=== PATIENT | female | born 1965 | race Caucasian/White ===

== ENCOUNTER 2019-09-04 19:31 | Inpatient (IN) | payer OTHER ==
--- NOTE | 2019-09-04 20:19 | BHS.RME ---
Substance Use & Tx History - Last Treatment Where was last treatment: Detox CIWA Nausea/Vomitin-Mild Nausea/No Vomiting Muscle Tremors: 4-Moderate,w/Arms Extend Anxiety: 4-Mod. Anxious/Guarded Agitation: 2 Paroxysmal Sweats: 2 Orientation: 2-Disoriented Date<2 days Tacttile Disturbances: 0-None Auditory Disturbances: 0-None Visual Disturbances: 0-None Headache: 3-Moderate CIWA-Ar Total Score: 18
[2019-09-04 21:19] VITALS: BMI 27.6
--- NOTE | 2019-09-04 22:33 | HP ---
CIWA Score Nausea/Vomitin-Mild Nausea/No Vomiting Muscle Tremors: 4-Moderate,w/Arms Extend Anxiety: 4-Mod. Anxious/Guarded Agitation: 4-Moderately Restless Paroxysmal Sweats: 2 Orientation: 0-Oriented Tacttile Disturbances: 0-None Auditory Disturbances: 0-None Visual Disturbances: 0-None Headache: 3-Moderate (Frontal throbbing headache. "4-5") CIWA-Ar Total Score: 18 - Admission Criteria OASAS Guidelines: Admission for Medically Managed Detox: Requires at least one of the followin. CIWA greater than 12 2. Seizures within the past 24 hours 3. Delirium tremens within the past 24 hours 4. Hallucinations within the past 24 hours 5. Acute intervention needed for co occurring medical disorder 6. Acute intervention needed for co occurring psychiatric disorder 7. Severe withdrawal that cannot be handled at a lower level of care (continued vomiting, continued diarrhea, abnormal vital signs) requiring intravenous medication and/or fluids 8. Admitting History and Physical - Smoking History Smoking history: Current every day smoker Have you smoked in the past 12 months: Yes Aproximately how many cigarettes per day: 10 Admission ROS [facility] Chief Complaint: Here because I relapsed 2 weeks ago and I can't stop drinking" Allergies/Adverse Reactions: Allergies Allergy/AdvReac Type Severity Reaction Status Date / Time Penicillins Allergy Intermediate Swelling Verified 09/04/19 21:00 Sulfa (Sulfonamide Allergy Intermediate Swelling Verified 09/04/19 21:00 Antibiotics) History of Present Illness: 54 yo presents w/ alcohol withdrawal symptoms seeking detox. Longest sobriety 10 years 8510-2792. States relapses 2-3 weeks ago. Alcohol use began at age 12. Currently drinks 2 large bottles wine and 6 - 12 oz beers/day. Last drink about 7 pm today. Heroin use began at age 23. Denies heroin relapse. Currently on [facility] MMTP. States current dose is 40 mg and last medicated today. Nicotine use began at age 12. Currently smokes 1/2-1 PPD. Oxycodone prescribed for entire spine. PMHx: COPD; Hx Lung Cancer - (S/P surgery and chemotherapy.) - States next chemo dose is in September; Chronic back Pain. Hx Heart attack 2 months ago w/ Irregular Heart beat - last took heart medications this a.m. - Metoprolol. Staes put on Prednisone yesterday x 5 days. Took one dose today. PATIENT INFORMED THAT OXYCODONE AND OTHER OPIATES ARE NOT PRESCRIBED AT THIS FACILITY FOR PAIN. PATIENT STATES UNDERSTANDS. STATES HAS OCCASIONALLY SKIPPED A DAY OF MEDICATION. PATIENT INFORMED WILL BE RECEIVING IBUPROFEN AND/OR TYLENOL FOR PAIN, MHHx: Depression. Anxiety. Insomnia. Denies thoughts of harming self or others. States takes Zoloft. No recent MH Provider. SHx: Domicile. Unemployed (SSI). Denies legal issues. Patient Name: Zari Lomeli Date: 1965 Address: [address] [place] [address] Sex: Female Rx Written Rx Dispensed Drug Quantity Days Supply Prescriber Name Payment Method Dispenser oxycodone hcl 20 mg tablet 85 29 Jay Bueno MD [facility] oxycodone hcl 20 mg tablet 90 30 Jay Bueno [facility] lorazepam 0.5 mg tablet 30 15 Jay Bueno MD [facility] oxycodone hcl 20 mg tablet 90 30 Jay Bueno MD [facility] oxycodone hcl 20 mg tablet 90 30 Jay Bueno MD [facility] oxycodone hcl 20 mg tablet 90 30 Jay Bueno MD [facility] oxycodone hcl 10 mg tablet 10 2 [facility] oxycodone hcl 20 mg tablet 90 30 Jay Bueno MD [facility] oxycodone hcl 20 mg tablet 90 30 Jay Bueno MD [facility] oxycodone hcl 20 mg tablet 90 30 Jay Bueno MD Insurance [facility] oxycodone hcl 20 mg tablet 90 30 Jay Bueno MD Insurance [facility] Date: 1965 Address: [address] [place] [address] Sex: Female Rx Written Rx Dispensed Drug Quantity Days Supply Prescriber Name Payment Method Dispenser oxycodone hcl 20 mg tablet 90 30 Jay Bueno MD Insurance [facility] oxycodone hcl 20 mg tablet 90 30 Jay Bueno MD Insurance [facility] oxycodone hcl 20 mg tablet 90 30 Jay Bueno MD Insurance [facility] Exam Limitations: No Limitations - Ebola screening Have you traveled outside of the country in the last 21 days: No Have you had contact with anyone from an Ebola affected area: No Have you been sick,other than usual withdrawal symptoms: No Do you have a fever: No - Review of Systems Constitutional: Changes in sleep (Difficulty staying asleep), Weight Stable EENT: reports: Blurred Vision, Dental Problems (Poor dentition. Chews and swalows ok) Respiratory: reports: SOB with Exertion, Productive cough Cardiac: reports: Irregular Heart Rate (On meds - but can remember what) GI: reports: Diarrhea (watery, dark brown x 2 - last 12 noon), Nausea, Indigestion (Heart burn - takes Rolaids/Tums), Abdominal cramping : reports: No Symptoms Reported Musculoskeletal: reports: Back Pain (Chronic full spinal throbbing/pin and needles pain. "6-7". Increases w/ sitting in wrong. positons. Sometines oxycodone or motrin makes it better.), Joint Pain (Recent knee dull, achy pain. Current (R) leg pain = "7"), Other (Uses walker because of back pain) Integumentary: reports: Other (Picked spots) Neuro: reports: Headache (Frontal throbbing headache. "4-5"), Tremors Endocrine: reports: Increased Thirst Hematology: reports: No Symptoms Reported Psychiatric: reports: Judgement Intact, Orientated x3, Agitated, Anxious Patient History - Patient Medical History Hx Asthma: Yes Hx Chronic Obstructive Pulmonary Disease (COPD): Yes Hx Cardiac Disorders: No Hx Hypertension: Yes (ON MEDS) Hx Seizures: No Hx Diabetes: No Hx Gastrointestinal Disorders: No Hx Genitourinary Disorders: No Hx Sexually Transmitted Disorders: No Hx Renal Disease (ESRD): No Hx Depression: Yes Hx Suicide Attempt: No Hx Schizophrenia: No - Patient Surgical History Past Surgical History: Yes Hx Neurologic Surgery: No Hx Cataract Extraction: No Hx Cardiac Surgery: No Hx Lung Surgery: Yes (Lung CA MAR 2019) Hx Breast Surgery: No Hx Breast Biopsy: No Hx Abdominal Surgery: No Hx Appendectomy: No Hx Cholecystectomy: No Hx Genitourinary Surgery: No Hx Section: Yes (X1 30YRS AGO) Hx Orthopedic Surgery: No Anesthesia Reaction: No - PPD History Previous Implant?: Yes Documented Results: Negative w/o proof Implanted On Prior [facility] Admission?: No PPD to be Administered?: Yes - Reproductive History Patient is a Female of Child Bearing Age (11 -55 yrs old): No - Smoking Cessation Smoking history: Current every day smoker Have you smoked in the past 12 months: Yes Aproximately how many cigarettes per day: 10 Hx Chewing Tobacco Use: No Initiated information on smoking cessation: Yes 'Breaking Loose' booklet given: 09/04/19 - Substance & Tx. History Hx Alcohol Use: Yes Hx Substance Use: Yes Substance Use Type: Alcohol, Heroin Hx Substance Use Treatment: Yes (detox, rehab, Currently on MMTP) - Substances abused Alcohol Substance route: Oral Frequency: Daily Amount used: vodka- 1 gallon/ beers- 6 can 24oz Age of first use: 12 Date of last use: 09/04/19 Admission Physical Exam BHS - Vital Signs Vital Signs: Vital Signs - 24 hr 09/04/19 20:58 Temperature 98.8 F Pulse Rate 86 Respiratory 20 Rate Blood Pressure 146/73 - Physical General Appearance: Yes: Nourished, Mild Distress, Tremorous, Sweating ( Increased facial moisture), Anxious (Increased facial moisture) HEENTM: Yes: EOMI, Hearing grossly Normal, DARYL, Pharynx Normal, Nasal Congestion Respiratory: Yes: Lungs Clear, Normal Breath Sounds, Other (Cough productive of thick yellowish phlegm) Breast: Yes: Breast Exam Deferred Cardiology: Yes: Regular Rhythm, Regular Rate, S1, S2 Abdominal: Yes: Non Tender, Soft, Increased Bowel Sounds Genitourinary: Yes: Within Normal Limits Back: Yes: Normal Inspection Musculoskeletal: Yes: full range of Motion, Gait Steady (w/o walker.), Muscle Pain ((R) chest area. + tenderness w/ palpation. No increased erythema or warmth.) Extremities: Yes: Normal Capillary Refill, Tremors Neurological: Yes: teaching artist II-XII NML intact, Fully Oriented, Alert, Motor Strength 5/5, Normal Mood/Affect (Increased anxiety) Integumentary: Yes: Normal Color, Warm, Moist (Increased facial moisture), Other (red picking peguero on arms) Lymphatic: Yes: Within Normal Limits - Diagnostic (1) Alcohol dependence with withdrawal, uncomplicated Current Visit: Yes Status: Acute (2) Methadone maintenance therapy patient Current Visit: Yes Status: Chronic (3) COPD (chronic obstructive pulmonary disease) Current Visit: Yes Status: Chronic Qualifiers: COPD type: unspecified COPD Qualified Code(s): J44.9 - Chronic obstructive pulmonary disease, unspecified (4) HTN (hypertension) Current Visit: Yes Status: Chronic Qualifiers: Hypertension type: unspecified Qualified Code(s): I10 - Essential (primary ) hypertension (5) History of lung cancer Current Visit: Yes Status: Chronic (6) Chronic back pain Current Visit: Yes Status: Chronic Qualifiers: Back pain location: back pain in unspecified location Back pain laterality : midline Qualified Code(s): M54.9 - Dorsalgia, unspecified; G89.29 - Other chronic pain (7) Nicotine dependence, unspecified, uncomplicated Current Visit: Yes Status: Chronic Qualifiers: Nicotine product type: cigarettes Qualified Code(s): F17.210 - Nicotine dependence, cigarettes, uncomplicated (8) History of irregular heartbeat Current Visit: Yes Status: Chronic (9) Abnormal finding on EKG Current Visit: Yes Status: Acute Cleared for Admission [facility] - Detox or Rehab [facility] Level of Care: Medically Managed Detox Regimen/Protocol: Librium Claeared for Rehab Admission: No Inpatient Rehab Admission - Rehab Decision to Admit Inpatient rehab admission?: No
[2019-09-04] MEDS ORDERED: MENTHOL/PHENOL 1 EACH UD MM PRN (23:08)
[2019-09-04] MEDS ORDERED: METHOCARBAMOL 500 MG TABLET PO PRN (23:08)
[2019-09-04] MEDS ORDERED: MAGNESIUM CITRATE 300 ML BOTTLE PO PRN (23:08)
[2019-09-04] MEDS ORDERED: ACETAMINOPHEN 325 MG TABLET (FP) PO PRN ×2 (23:08)
[2019-09-04] MEDS ORDERED: MAG HYDROX/AL HYDROX/SIMETH 30 ML UNIT-DOSE CUP PO PRN (23:08)
[2019-09-04] MEDS ORDERED: NICOTINE POLACRILEX 2 MG GUM BUC PRN (23:08)
[2019-09-04] MEDS ORDERED: MAGNESIUM HYDROX 2400MG/30ML ORAL SUSPENSION 30 ML CUP PO PRN (23:08)
[2019-09-04] MEDS ORDERED: SODIUM CHLORIDE NASAL SPRAY 44 ML BOTTLE NS PRN (23:15)
[2019-09-04] MEDS ORDERED: ALBUTEROL SO4 0.083% IH SOL 2.5 MG/3 ML VIAL.NEB. NEB PRN (23:17)
[2019-09-04] MEDS ORDERED: P-EPHED 60MG/TRIPROLIDI 2.5MG TABLET PO PRN (23:45)
[2019-09-04] MEDS ORDERED: chlordiazePOXIDE HCL 25 MG CAPSULE PO ONE (23:59)
[2019-09-05] MEDS: IBUPROFEN 400 MG TABLET (FP) PO PRN ×2 (00:59→10:19)
[2019-09-05] MEDS: guaiFENesin 200 MG/10 ML 10 ML UNIT-DOSE CUPS PO SCH ×4 (01:13→17:36)
[2019-09-05] MEDS ORDERED: chlordiazePOXIDE HCL 10 MG CAPSULE PO PRN (05:00)
[2019-09-05] MEDS: chlordiazePOXIDE HCL 10 MG CAPSULE PO SCH ×3 (06:25→22:26)
[2019-09-05] MEDS: METOPROLOL TARTRATE 25 MG TABLET (FP) PO SCH ×3 (08:14→22:25)
[2019-09-05 09:44] LABS: HEMATOCRIT 35.8 % (32.4-45.2); HEMOGLOBIN 11.6 GM/dL (10.7-15.3); MCH 30.9 pg (25.7-33.7); MCHC 32.4 g/dl (32.0-36.0); MEAN CELL VOLUME 95.2 fl (80-96); PLATELET COUNT 235 K/MM3 (134-434); RBC 3.76 M/mm3 (3.60-5.2); WHITE BLOOD COUNT 18.3 K/mm3 (4.0-10.0)
[2019-09-05 10:15] LABS: ALBUMIN 3.4 g/dl (3.4-5.0); BILIRUBIN,TOTAL 1.4 mg/dL (0.2-1); BLOOD UREA NITROGEN 12.3 mg/dL (7-18); CALCIUM 9.2 mg/dL (8.5-10.1); CREATININE 0.6 mg/dL (0.55-1.3); POTASSIUM 4.4 mmol/L (3.5-5.1); TOT PROT 6.9 g/dl (6.4-8.2)
[2019-09-05] MEDS: NICOTINE 14 MG/24 HOURS TOPICAL PATCH TD SCH (10:17)
[2019-09-05] MEDS: predniSONE 20 MG TABLET (UD) PO SCH (10:20)
[2019-09-05] MEDS: PANTOPRAZOLE 20 MG TABLET PO SCH ×2 (10:21→22:25)
[2019-09-05] MEDS: PRENATAL VITAMINS W/ FOLIC ACID TABLET (FP) PO SCH (10:21)
--- NOTE | 2019-09-05 10:41 | CONSULT ---
[facility] Psychiatric Consult - Data Date of interview: 09/05/19 Admission source: [facility] Identifying data: First visit to [facility] and admission to [address] [place] [address] for this 54 y/o female from [place] descent, self-referred for detoxification treatment. MANDIE issues : alcohol, opioid, nicotine. Patient is single, mother of one, domiciled, unemployed, disabled and supported on SSI benefits. Substance Abuse History: Discussed with patient. Details in current [facility] report as follows : Smoking history: Current every day smoker. Have you smoked in the past 12 months: Yes. Aproximately how many cigarettes per day: 10. Hx Chewing Tobacco Use: No. Initiated information on smoking cessation: Yes. 'Breaking Loose' booklet given: 09/04/19. - Substance & Tx. History. Hx Alcohol Use: Yes. Hx Substance Use: Yes. Substance Use Type: Alcohol, Heroin. Hx Substance Use Treatment: Yes (detox, rehab, Currently on MMTP). - Substances abused. Alcohol. Substance route: Oral. Frequency: Daily. Amount used: vodka- 1 gallon/ beers- 6 can 24oz. Age of first use: 12. Date of last use: Medical History: Medical profile is remarkable for lung cancer (on chemotherapy) , COPD, hypertension and recent myocardial infarction. Patient ambulates with a rolling walker. Psychiatric History: Patient endorses a history of multiple psychiatric hospitalizations ([facility] + [facility] + [facility] institutions in [facility]). Diagnosed with Bipolar Disorder. Ms Lomeli reports psychiatric care with sertraline + trazodone. Has no affiliation with psychiatric providers. Patient indicates that she relies on her primary care providers for medications refills (discharged from the [facility] OPD program for chronic non-adherence). Currently on methadomne maintenance (40 mg/day). Patient reports a distant history of suicide attempt via overdose with pills (20 years ago). Physical/Sexual Abuse/Trauma History: Stressors : serious medical illnesses and disabilities, addictions and lack of a support network. Additional Comment: Toxicology not available for review. Mental Status Exam - Mental Status Exam Alert and Oriented to: Time, Place, Person Cognitive Function: Good Patient Appearance: Disheveled Mood: Sad, Withdrawn Affect: Mood Congruent, Constricted Patient Behavior: Fatigued, Appropriate, Cooperative Speech Pattern: Clear, Appropriate Voice Loudness: Normal Thought Process: Intact, Goal Oriented Thought Disorder: Not Present Hallucinations: Denies Suicidal Ideation: Denies Homicidal Ideation: Denies Insight/Judgement: Poor Sleep: Poorly, Difficulty falling asleep Appetite: Poor, Weight loss Gait/Station: Other (moves around with rolling walker) Psychiatric Findings - Problem List ([place] 1, 2,3) (1) Alcohol dependence with withdrawal, uncomplicated Current Visit: Yes Status: Acute (2) Opioid dependence on agonist therapy Current Visit: Yes Status: Chronic (3) Nicotine dependence, unspecified, uncomplicated Current Visit: Yes Status: Chronic Qualifiers: Nicotine product type: cigarettes Qualified Code(s): F17.210 - Nicotine dependence, cigarettes, uncomplicated (4) History of depression Current Visit: Yes Status: Chronic (5) Insomnia Current Visit: Yes Status: Chronic - Initial Treatment Plan Initial Treatment Plan: Psychoeducation. Sleep hygiene. Detoxification. Insomnia is addressed with melatonin. AA/NA metings. Support and motivational counseling. Observation.
--- NOTE | 2019-09-05 11:03 | PN ---
S CIWA - CIWA Score Nausea/Vomitin-No Nausea/No Vomiting Muscle Tremors: None Anxiety: 3 Agitation: 0-Normal Activity Paroxysmal Sweats: 3 Orientation: 0-Oriented Tacttile Disturbances: 0-None Auditory Disturbances: 0-None Visual Disturbances: 0-None Headache: 2-Mild CIWA-Ar Total Score: 8 BHS Progress Note (SOAP) Subjective: c/o headache, anxiety, and sweats. Objective: 09/05/19 10:59 Vital Signs 09/05/19 09/05/19 09/05/19 03:30 06:59 09:02 Temperature 97.3 F L 97.1 F L Pulse Rate 70 68 Respiratory 18 18 18 Rate Blood Pressure 141/67 97/54 L Laboratory Last Values WBC 18.3 K/mm3 (4.0-10.0) H 09/05/19 07:20 RBC 3.76 M/mm3 (3.60-5.2) 09/05/19 07:20 Hgb 11.6 GM/dL (10.7-15.3) 09/05/19 07:20 Hct 35.8 % (32.4-45.2) 09/05/19 07:20 MCV 95.2 fl (80-96) 09/05/19 07:20 MCH 30.9 pg (25.7-33.7) 09/05/19 07:20 MCHC 32.4 g/dl (32.0-36.0) 09/05/19 07:20 RDW 22.0 % (11.6-15.6) H 09/05/19 07:20 Plt Count 235 K/MM3 (134-434) 09/05/19 07:20 MPV 9.0 fl (7.5-11.1) 09/05/19 07:20 Sodium 141 mmol/L (136-145) 09/05/19 07:20 Potassium 4.4 mmol/L (3.5-5.1) 09/05/19 07:20 Chloride 108 mmol/L (98-107) H 09/05/19 07:20 Carbon Dioxide 26 mmol/L (21-32) 09/05/19 07:20 Anion Gap 8 MMOL/L (8-16) 09/05/19 07:20 BUN 12.3 mg/dL (7-18) 09/05/19 07:20 Creatinine 0.6 mg/dL (0.55-1.3) 09/05/19 07:20 Est GFR (CKD-EPI)AfAm 118.09 09/05/19 07:20 Est GFR (CKD-EPI)NonAf 101.89 09/05/19 07:20 Random Glucose 63 mg/dL (74-106) L 09/05/19 07:20 Calcium 9.2 mg/dL (8.5-10.1) 09/05/19 07:20 Total Bilirubin 1.4 mg/dL (0.2-1) H 09/05/19 07:20 AST 13 U/L (15-37) L 09/05/19 07:20 ALT 14 U/L (13-61) 09/05/19 07:20 Alkaline Phosphatase 100 U/L (45-117) 09/05/19 07:20 Total Protein 6.9 g/dl (6.4-8.2) 09/05/19 07:20 Albumin 3.4 g/dl (3.4-5.0) 09/05/19 07:20 RPR Titer Nonreactive (NONREACTIVE) 09/05/19 07:20 Labs noted with elevated WBC. Assessment: 09/05/19 11:00 AOX3, in no respiratory distress. Full ROM, ambulating in the unit with a walker. Withdrawal symptoms. Leukocytosis 09/05/19 11:00 Plan: continue detox. Increase fluids. Repeat cbc with diff in AM.
[2019-09-05] MEDS ORDERED: METHADONE HCL 10 MG TABLET PO SCH (12:00)
[2019-09-05] MEDS ORDERED: METHADONE HCL 10 MG TABLET PO ONE (20:00)
--- NOTE | 2019-09-05 21:05 | PN ---
[facility] Progress Note Note: Patient states feeling some opioid withdrawal symptoms. States was given methadone 20 mg this am, but usual dose is 40 mg. Assess: Pupils at 5 mm and mild tremors felt. Plan: Based on EBP of addiction medicine will give additional 10 mg methadone today ( total 30 mg today). Give Methadone 30 mg PO in a.m. Nurses to call patient's methadone program on 09/06 and verify LDM and dose.
[2019-09-05] MEDS: ATORVASTATIN CA 40 MG TABLET (FP) PO SCH (22:25)
[2019-09-05] MEDS: THIAMINE HCL 100 MG TABLET (FP) PO SCH (22:25)
[2019-09-06] MEDS ORDERED: chlordiazePOXIDE HCL 10 MG CAPSULE PO PRN (05:00)
[2019-09-06] MEDS ORDERED: METHADONE HCL 10 MG TABLET PO ONE ×2 (06:00→10:00)
[2019-09-06] MEDS: chlordiazePOXIDE 5 MG CAPSULE PO SCH ×3 (06:37→22:21)
[2019-09-06] MEDS: guaiFENesin 200 MG/10 ML 10 ML UNIT-DOSE CUPS PO SCH ×5 (06:37→23:25)
[2019-09-06 09:22] LABS: BASO % 0.8 % (0-2.0); EOS % 0.5 % (0-4.5); HEMATOCRIT 33.7 % (32.4-45.2); HEMOGLOBIN 10.9 GM/dL (10.7-15.3); LYMPH % 22.5 % (8-40); MCH 30.8 pg (25.7-33.7); MCHC 32.3 g/dl (32.0-36.0); MEAN CELL VOLUME 95.4 fl (80-96); MEAN PLT VOLUME 9.3 fl (7.5-11.1); NEUT % 71.2 % (42.8-82.8); PLATELET COUNT 218 K/MM3 (134-434); RBC 3.53 M/mm3 (3.60-5.2); RDW 20.8 % (11.6-15.6); WHITE BLOOD COUNT 13.7 K/mm3 (4.0-10.0)
--- NOTE | 2019-09-06 10:03 | PN ---
[facility] CIWA - CIWA Score Nausea/Vomitin-Mild Nausea/No Vomiting Muscle Tremors: 4-Moderate,w/Arms Extend Anxiety: 4-Mod. Anxious/Guarded Agitation: 0-Normal Activity Paroxysmal Sweats: 2 Orientation: 0-Oriented Tacttile Disturbances: 0-None Auditory Disturbances: 0-None Visual Disturbances: 0-None Headache: 0-None Present CIWA-Ar Total Score: 11 S Progress Note (SOAP) Subjective: 54 years old female admitted on 09/04/19 for alcohol withdrawal sx management treating with librium detox regiment ambulating on hallway with walker using walker x 2 years and in the methadone program x 7 years alert oriented x 3 no acute distress Ms Kalacar is prescribed with 20mg opiate based pain release medication three time daily last filled 08/29/19 Objective: 09/06/19 10:09 Vital Signs Temperature 97.1 F L 09/06/19 05:55 Pulse Rate 53 L 09/06/19 05:55 Respiratory Rate 16 09/06/19 05:55 Blood Pressure 106/62 09/06/19 05:55 O2 Sat by Pulse Oximetry (%) Laboratory Last Values WBC 13.7 K/mm3 (4.0-10.0) H 09/06/19 07:30 RBC 3.53 M/mm3 (3.60-5.2) L 09/06/19 07:30 Hgb 10.9 GM/dL (10.7-15.3) 09/06/19 07:30 Hct 33.7 % (32.4-45.2) 09/06/19 07:30 MCV 95.4 fl (80-96) 09/06/19 07:30 MCH 30.8 pg (25.7-33.7) 09/06/19 07:30 MCHC 32.3 g/dl (32.0-36.0) 09/06/19 07:30 RDW 20.8 % (11.6-15.6) H 09/06/19 07:30 Plt Count 218 K/MM3 (134-434) 09/06/19 07:30 MPV 9.3 fl (7.5-11.1) 09/06/19 07:30 Absolute Neuts (auto) 9.8 K/mm3 (1.5-8.0) H 09/06/19 07:30 Neutrophils % 71.2 % (42.8-82.8) 09/06/19 07:30 Lymphocytes % 22.5 % (8-40) 09/06/19 07:30 Monocytes % 5.0 % (3.8-10.2) 09/06/19 07:30 Eosinophils % 0.5 % (0-4.5) 09/06/19 07:30 Basophils % 0.8 % (0-2.0) 09/06/19 07:30 Nucleated RBC % 0 % (0-0) 09/06/19 07:30 Sodium 141 mmol/L (136-145) 09/05/19 07:20 Potassium 4.4 mmol/L (3.5-5.1) 09/05/19 07:20 Chloride 108 mmol/L (98-107) H 09/05/19 07:20 Carbon Dioxide 26 mmol/L (21-32) 09/05/19 07:20 Anion Gap 8 MMOL/L (8-16) 09/05/19 07:20 BUN 12.3 mg/dL (7-18) 09/05/19 07:20 Creatinine 0.6 mg/dL (0.55-1.3) 09/05/19 07:20 Est GFR (CKD-EPI)AfAm 118.09 09/05/19 07:20 Est GFR (CKD-EPI)NonAf 101.89 09/05/19 07:20 Random Glucose 63 mg/dL (74-106) L 09/05/19 07:20 Calcium 9.2 mg/dL (8.5-10.1) 09/05/19 07:20 Total Bilirubin 1.4 mg/dL (0.2-1) H 09/05/19 07:20 AST 13 U/L (15-37) L 09/05/19 07:20 ALT 14 U/L (13-61) 09/05/19 07:20 Alkaline Phosphatase 100 U/L (45-117) 09/05/19 07:20 Total Protein 6.9 g/dl (6.4-8.2) 09/05/19 07:20 Albumin 3.4 g/dl (3.4-5.0) 09/05/19 07:20 RPR Titer Nonreactive (NONREACTIVE) 09/05/19 07:20 HIV 1&2 Antibody Screen Negative 09/05/19 07:20 HIV P24 Antigen Negative 09/05/19 07:20 lab noted Assessment: 09/06/19 10:09 alcohol withdrawal Plan: librium regiment
[2019-09-06] MEDS: predniSONE 20 MG TABLET (UD) PO SCH (10:11)
[2019-09-06] MEDS: METOPROLOL TARTRATE 25 MG TABLET (FP) PO SCH ×2 (10:12→22:21)
[2019-09-06] MEDS: PRENATAL VITAMINS W/ FOLIC ACID TABLET (FP) PO SCH (10:12)
[2019-09-06] MEDS: PANTOPRAZOLE 20 MG TABLET PO SCH ×2 (10:12→22:21)
[2019-09-06] MEDS: NICOTINE 14 MG/24 HOURS TOPICAL PATCH TD SCH (10:12)
[2019-09-06 13:36] LABS: ANISOCYTOSIS 1+; MACROCYTOSIS 0; PLATELET ESTIMATE NORMAL; TARGET CELLS 1+
[2019-09-06] MEDS: ATORVASTATIN CA 40 MG TABLET (FP) PO SCH (22:21)
[2019-09-06] MEDS: THIAMINE HCL 100 MG TABLET (FP) PO SCH (22:21)
[2019-09-06] MEDS: MELATONIN 5 MG TABLETS PO PRN (22:22)
[2019-09-07] MEDS: chlordiazePOXIDE HCL 10 MG CAPSULE PO SCH ×3 (05:49→22:02)
[2019-09-07] MEDS: guaiFENesin 200 MG/10 ML 10 ML UNIT-DOSE CUPS PO SCH ×4 (05:49→23:24)
[2019-09-07] MEDS ORDERED: METHOCARBAMOL 500 MG TABLET PO ONE (08:43)
--- NOTE | 2019-09-07 09:31 | EKG ---
Test Reason : Blood Pressure : / mmHG Vent. Rate : 057 BPM Atrial Rate : 057 BPM P-R Int : 102 ms QRS Dur : 080 ms QT Int : 424 ms P-R-T Axes : 046 064 078 degrees QTc Int : 412 ms SINUS BRADYCARDIA WITH SHORT MD OTHERWISE NORMAL ECG WHEN COMPARED WITH ECG OF 04-SEP-2019 23:19, MD INTERVAL HAS DECREASED QUESTIONABLE CHANGE IN QRS DURATION Confirmed by Alix Walker ([id number]) on 09/07/2019 9:30:39 AM Referred By: Serafin Vines Confirmed By:Alix Walker
--- NOTE | 2019-09-07 09:32 | EKG ---
Test Reason : Blood Pressure : / mmHG Vent. Rate : 078 BPM Atrial Rate : 078 BPM P-R Int : 154 ms QRS Dur : 110 ms QT Int : 396 ms P-R-T Axes : 000 065 113 degrees QTc Int : 451 ms NORMAL SINUS RHYTHM Nonspecific ST changes ABNORMAL ECG NO PREVIOUS ECGS AVAILABLE Confirmed by Alix Walker ([id number]) on 09/07/2019 9:31:25 AM Referred By: Serafin Vines Confirmed By:Alix Walker
--- NOTE | 2019-09-07 09:56 | PN ---
S CIWA - CIWA Score Nausea/Vomitin-No Nausea/No Vomiting Muscle Tremors: 2 Anxiety: 3 Agitation: 1-Slight > Activity Paroxysmal Sweats: 2 Orientation: 0-Oriented Tacttile Disturbances: 0-None Auditory Disturbances: 0-None Visual Disturbances: 0-None Headache: 0-None Present CIWA-Ar Total Score: 8 BHS Progress Note (SOAP) Subjective: 54 years old female admitted on 09/04/19 for alcohol withdrawal sx management treating with librium detox regiment feeling better today less tremor mild anxiety ambulating with walker slow steady encourage the patient to attend behavior and psychosocial therapies groups and meetings Objective: 09/07/19 09:57 Vital Signs Temperature 97.1 F L 09/07/19 08:31 Pulse Rate 57 L 09/07/19 08:31 Respiratory Rate 18 09/07/19 08:31 Blood Pressure 131/59 L 09/07/19 08:31 O2 Sat by Pulse Oximetry (%) Laboratory Last Values WBC 13.7 K/mm3 (4.0-10.0) H 09/06/19 07:30 RBC 3.53 M/mm3 (3.60-5.2) L 09/06/19 07:30 Hgb 10.9 GM/dL (10.7-15.3) 09/06/19 07:30 Hct 33.7 % (32.4-45.2) 09/06/19 07:30 MCV 95.4 fl (80-96) 09/06/19 07:30 MCH 30.8 pg (25.7-33.7) 09/06/19 07:30 MCHC 32.3 g/dl (32.0-36.0) 09/06/19 07:30 RDW 20.8 % (11.6-15.6) H 09/06/19 07:30 Plt Count 218 K/MM3 (134-434) 09/06/19 07:30 MPV 9.3 fl (7.5-11.1) 09/06/19 07:30 Absolute Neuts (auto) 9.8 K/mm3 (1.5-8.0) H 09/06/19 07:30 Neutrophils % 71.2 % (42.8-82.8) 09/06/19 07:30 Neutrophils % (Manual) 53.1 % (42.8-82.8) 09/06/19 07:30 Band Neutrophils % 6.1 % 09/06/19 07:30 Lymphocytes % 22.5 % (8-40) 09/06/19 07:30 Lymphocytes % (Manual) 22.5 % (8-40) 09/06/19 07:30 Monocytes % 5.0 % (3.8-10.2) 09/06/19 07:30 Monocytes % (Manual) 5 % (3.8-10.2) 09/06/19 07:30 Eosinophils % 0.5 % (0-4.5) 09/06/19 07:30 Eosinophils % (Manual) 2.0 % (0-4.5) 09/06/19 07:30 Basophils % 0.8 % (0-2.0) 09/06/19 07:30 Basophils % (Manual) 0.0 % (0-2.0) 09/06/19 07:30 Myelocytes % (Man) 0 % (0-2) 09/06/19 07:30 Promyelocytes % (Man) 0 % (0-2) 09/06/19 07:30 Blast Cells % (Manual) 0 % (0-0) 09/06/19 07:30 Nucleated RBC % 0 % (0-0) 09/06/19 07:30 Metamyelocytes 0 % (0-2) 09/06/19 07:30 Hypochromia 0 09/06/19 07:30 Platelet Estimate Normal 09/06/19 07:30 Platelet Comment Present 09/06/19 07:30 Polychromasia 1+ 09/06/19 07:30 Poikilocytosis 1+ 09/06/19 07:30 Anisocytosis 1+ 09/06/19 07:30 Microcytosis 1+ 09/06/19 07:30 Macrocytosis 0 09/06/19 07:30 Spherocytes 2+ 09/06/19 07:30 Target Cells 1+ 09/06/19 07:30 Chitra Cells 1+ 09/06/19 07:30 Sodium 141 mmol/L (136-145) 09/05/19 07:20 Potassium 4.4 mmol/L (3.5-5.1) 09/05/19 07:20 Chloride 108 mmol/L (98-107) H 09/05/19 07:20 Carbon Dioxide 26 mmol/L (21-32) 09/05/19 07:20 Anion Gap 8 MMOL/L (8-16) 09/05/19 07:20 BUN 12.3 mg/dL (7-18) 09/05/19 07:20 Creatinine 0.6 mg/dL (0.55-1.3) 09/05/19 07:20 Est GFR (CKD-EPI)AfAm 118.09 09/05/19 07:20 Est GFR (CKD-EPI)NonAf 101.89 09/05/19 07:20 Random Glucose 63 mg/dL (74-106) L 09/05/19 07:20 Calcium 9.2 mg/dL (8.5-10.1) 09/05/19 07:20 Total Bilirubin 1.4 mg/dL (0.2-1) H 09/05/19 07:20 AST 13 U/L (15-37) L 09/05/19 07:20 ALT 14 U/L (13-61) 09/05/19 07:20 Alkaline Phosphatase 100 U/L (45-117) 09/05/19 07:20 Total Protein 6.9 g/dl (6.4-8.2) 09/05/19 07:20 Albumin 3.4 g/dl (3.4-5.0) 09/05/19 07:20 RPR Titer Nonreactive (NONREACTIVE) 09/05/19 07:20 HIV 1&2 Antibody Screen Negative 09/05/19 07:20 HIV P24 Antigen Negative 09/05/19 07:20 09/07/19 09:57 lab noted wbc elevation patient is asymptomatic no coughing denies urination discomfort Assessment: 09/07/19 09:59 alcohol withdrawal Plan: librium regiment
[2019-09-07] MEDS: METOPROLOL TARTRATE 25 MG TABLET (FP) PO SCH ×2 (10:07→22:02)
[2019-09-07] MEDS: NICOTINE 14 MG/24 HOURS TOPICAL PATCH TD SCH (10:07)
[2019-09-07] MEDS: predniSONE 20 MG TABLET (UD) PO SCH (10:07)
[2019-09-07] MEDS: PRENATAL VITAMINS W/ FOLIC ACID TABLET (FP) PO SCH (10:07)
[2019-09-07] MEDS: PANTOPRAZOLE 20 MG TABLET PO SCH ×2 (10:10→22:02)
--- NOTE | 2019-09-07 10:54 | PN ---
S Progress Note Note: received EKG department requests EKG order for Ms Lomeli on 09/07/19 935 am
--- NOTE | 2019-09-07 11:25 | EKG ---
Test Reason : Blood Pressure : / mmHG Vent. Rate : 051 BPM Atrial Rate : 051 BPM P-R Int : 092 ms QRS Dur : 100 ms QT Int : 426 ms P-R-T Axes : 061 054 086 degrees QTc Int : 392 ms SINUS BRADYCARDIA WITH SHORT [place] OTHERWISE NORMAL ECG WHEN COMPARED WITH ECG OF 06-SEP-2019 07:25, NO SIGNIFICANT CHANGE WAS FOUND Confirmed by Alix Walker ([id number]) on 09/07/2019 11:25:32 AM Referred By: Serafin Vines Confirmed By:Alix Walker
[2019-09-07] MEDS: IBUPROFEN 400 MG TABLET (FP) PO PRN (14:00)
[2019-09-07 17:16] LABS: EPI CELLS 1.3 /HPF (0-5/HPF); HYALINE CASTS 0 /lpf (0-8); PH,URINE 5.5 (5.0-8.0); URINE APPEARANCE CLEAR; URINE BILIRUBIN NEGATIVE (NEGATIVE); URINE COLOR YELLOW; URINE GLUCOSE (UA) NEGATIVE (NEGATIVE); URINE KETONE NEGATIVE (NEGATIVE); URINE LEUK ESTERASE TRACE (NEGATIVE); URINE NITRITE NEGATIVE (NEGATIVE); URINE PROTEIN NEGATIVE (NEGATIVE); URINE RBC 4 /hpf (0-4); URINE UROBILINOGEN 0.2 mg/dL (0.2-1.0); URINE WBC 3 /hpf (0-5)
[2019-09-07] MEDS ORDERED: SUVOREXANT 5 MG TABLET PO SCH (22:00)
[2019-09-07] MEDS: THIAMINE HCL 100 MG TABLET (FP) PO SCH (22:02)
[2019-09-07] MEDS: ATORVASTATIN CA 40 MG TABLET (FP) PO SCH (22:02)
[2019-09-07] MEDS: MELATONIN 5 MG TABLETS PO PRN (22:03)
[2019-09-08] MEDS ORDERED: chlordiazePOXIDE HCL 10 MG CAPSULE PO ONE (05:00)
[2019-09-08] MEDS: guaiFENesin 200 MG/10 ML 10 ML UNIT-DOSE CUPS PO SCH (05:56)
[2019-09-08] MEDS: BISMUTH SUBSALICYLATE 524 MG/30 ML UD PO PRN ×3 (05:56→08:55)
[2019-09-08 05:57] VITALS: BP 150/69; PULSE 51; TEMP 97.3
--- NOTE | 2019-09-08 15:05 | DS ---
[facility] Detox Discharge Summary Admission Date: 09/04/19 Discharge Date: 09/08/19 - History Present History: Alcohol Dependence Additional Comments: 54 years old female admitted on 09/05/19 for alcohol withdrawal sx management treated with librium detox regiment Ms Lomeli has completed librium regiment and tolerated well seen by psychiatrist no medical intervention alert oriented x 3 ambulating with walker slow steady respiratory clear lungs bilaterally on auscultation abdomen soft no rebound tenderness skin warm and dry Pertinent Past History: time for discharge 38 minutes - Physical Exam Results Vital Signs: Vital Signs Temperature 97.3 F L 09/08/19 05:56 Pulse Rate 51 L 09/08/19 05:56 Respiratory Rate 18 09/08/19 05:56 Blood Pressure 150/69 09/08/19 05:56 O2 Sat by Pulse Oximetry (%) Pertinent Admission Physical Exam Findings: alcohol withdrawal Vital Signs Temperature 97.3 F L 09/08/19 05:56 Pulse Rate 51 L 09/08/19 05:56 Respiratory Rate 18 09/08/19 05:56 Blood Pressure 150/69 09/08/19 05:56 O2 Sat by Pulse Oximetry (%) Laboratory Last Values WBC 13.7 K/mm3 (4.0-10.0) H 09/06/19 07:30 RBC 3.53 M/mm3 (3.60-5.2) L 09/06/19 07:30 Hgb 10.9 GM/dL (10.7-15.3) 09/06/19 07:30 Hct 33.7 % (32.4-45.2) 09/06/19 07:30 MCV 95.4 fl (80-96) 09/06/19 07:30 MCH 30.8 pg (25.7-33.7) 09/06/19 07:30 MCHC 32.3 g/dl (32.0-36.0) 09/06/19 07:30 RDW 20.8 % (11.6-15.6) H 09/06/19 07:30 Plt Count 218 K/MM3 (134-434) 09/06/19 07:30 MPV 9.3 fl (7.5-11.1) 09/06/19 07:30 Absolute Neuts (auto) 9.8 K/mm3 (1.5-8.0) H 09/06/19 07:30 Neutrophils % 71.2 % (42.8-82.8) 09/06/19 07:30 Neutrophils % (Manual) 53.1 % (42.8-82.8) 09/06/19 07:30 Band Neutrophils % 6.1 % 09/06/19 07:30 Lymphocytes % 22.5 % (8-40) 09/06/19 07:30 Lymphocytes % (Manual) 22.5 % (8-40) 09/06/19 07:30 Monocytes % 5.0 % (3.8-10.2) 09/06/19 07:30 Monocytes % (Manual) 5 % (3.8-10.2) 09/06/19 07:30 Eosinophils % 0.5 % (0-4.5) 09/06/19 07:30 Eosinophils % (Manual) 2.0 % (0-4.5) 09/06/19 07:30 Basophils % 0.8 % (0-2.0) 09/06/19 07:30 Basophils % (Manual) 0.0 % (0-2.0) 09/06/19 07:30 Myelocytes % (Man) 0 % (0-2) 09/06/19 07:30 Promyelocytes % (Man) 0 % (0-2) 09/06/19 07:30 Blast Cells % (Manual) 0 % (0-0) 09/06/19 07:30 Nucleated RBC % 0 % (0-0) 09/06/19 07:30 Metamyelocytes 0 % (0-2) 09/06/19 07:30 Hypochromia 0 09/06/19 07:30 Platelet Estimate Normal 09/06/19 07:30 Platelet Comment Present 09/06/19 07:30 Polychromasia 1+ 09/06/19 07:30 Poikilocytosis 1+ 09/06/19 07:30 Anisocytosis 1+ 09/06/19 07:30 Microcytosis 1+ 09/06/19 07:30 Macrocytosis 0 09/06/19 07:30 Spherocytes 2+ 09/06/19 07:30 Target Cells 1+ 09/06/19 07:30 [place] Cells 1+ 09/06/19 07:30 Sodium 141 mmol/L (136-145) 09/05/19 07:20 Potassium 4.4 mmol/L (3.5-5.1) 09/05/19 07:20 Chloride 108 mmol/L (98-107) H 09/05/19 07:20 Carbon Dioxide 26 mmol/L (21-32) 09/05/19 07:20 Anion Gap 8 MMOL/L (8-16) 09/05/19 07:20 BUN 12.3 mg/dL (7-18) 09/05/19 07:20 Creatinine 0.6 mg/dL (0.55-1.3) 09/05/19 07:20 Est GFR (CKD-EPI)AfAm 118.09 09/05/19 07:20 Est GFR (CKD-EPI)NonAf 101.89 09/05/19 07:20 Random Glucose 63 mg/dL (74-106) L 09/05/19 07:20 Calcium 9.2 mg/dL (8.5-10.1) 09/05/19 07:20 Total Bilirubin 1.4 mg/dL (0.2-1) H 09/05/19 07:20 AST 13 U/L (15-37) L 09/05/19 07:20 ALT 14 U/L (13-61) 09/05/19 07:20 Alkaline Phosphatase 100 U/L (45-117) 09/05/19 07:20 Total Protein 6.9 g/dl (6.4-8.2) 09/05/19 07:20 Albumin 3.4 g/dl (3.4-5.0) 09/05/19 07:20 Urine Color Yellow 09/07/19 13:40 Urine Appearance Clear 09/07/19 13:40 Urine pH 5.5 (5.0-8.0) 09/07/19 13:40 Ur Specific [place] 1.015 (1.010-1.035) 09/07/19 13:40 Urine Protein Negative (NEGATIVE) 09/07/19 13:40 Urine Glucose (UA) Negative (NEGATIVE) 09/07/19 13:40 Urine Ketones Negative (NEGATIVE) 09/07/19 13:40 Urine Blood Negative (NEGATIVE) 09/07/19 13:40 Urine Nitrite Negative (NEGATIVE) 09/07/19 13:40 Urine Bilirubin Negative (NEGATIVE) 09/07/19 13:40 Urine Urobilinogen 0.2 mg/dL (0.2-1.0) 09/07/19 13:40 Ur Leukocyte Esterase Trace (NEGATIVE) 09/07/19 13:40 Urine WBC (Auto) 3 /hpf (0-5) 09/07/19 13:40 Urine RBC (Auto) 4 /hpf (0-4) 09/07/19 13:40 Urine Casts (Auto) 0 /lpf (0-8) 09/07/19 13:40 U Epithel Cells (Auto) 1.3 /HPF (0-5/HPF) 09/07/19 13:40 Urine Bacteria (Auto) 28.0 /hpf (NEGATIVE) 09/07/19 13:40 RPR Titer Nonreactive (NONREACTIVE) 09/05/19 07:20 HIV 1&2 Antibody Screen Negative 09/05/19 07:20 HIV P24 Antigen Negative 09/05/19 07:20 lab noted - Treatment Hospital Course: Detox Protocol Followed, Detoxed Safely, Responded well, Discharged Condition Good, Rehab Referral Accepted Patient has Accepted a Rehab Referral to: [facility] - Medication Discharge Medications: Ambulatory Orders Folic Acid - 1 mg PO DAILY 09/04/19 Metoprolol Tartrate [Lopressor -] 25 mg PO BID 09/04/19 Pseudoephedrine HCl [Sudafed -] 60 mg PO Q4H 09/04/19 Thiamine HCl [B-1] 100 mg PO HS 09/04/19 Atorvastatin Ca [Lipitor] 40 mg PO HS #30 tablet 09/07/19 - Diagnosis (1) Alcohol dependence with withdrawal, uncomplicated Status: Acute (2) COPD (chronic obstructive pulmonary disease) Status: Chronic Qualifiers: COPD type: emphysema Emphysema type: unilateral Qualified Code(s): J43.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] (3) HTN (hypertension) Status: Chronic Qualifiers: Hypertension type: unspecified Qualified Code(s): I10 - Essential (primary ) hypertension (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
== END 2019-09-08 09:08 | disposition home or self-care (01) | DRG 773 ==
LOC: YASAS 19:31 → Y3N 23:44
PROVIDERS: ADMIT Allergy & Immunology; ATTEND Allergy & Immunology
PROC: HZ2ZZZZ Detoxification Services for Substance Abuse Treatment (ICD-10-PCS; principal; 2019-09-04)
DX: F10.230 Alcohol dependence with withdrawal, uncomplicated (principal); F11.20 Opioid dependence, uncomplicated; F17.210 Nicotine dependence, cigarettes, uncomplicated; F32.9 Major depressive disorder, single episode, unspecified; I25.10 Atherosclerotic heart disease of native coronary artery without angina pectoris; I10 Essential (primary) hypertension; I25.2 Old myocardial infarction; I49.9 Cardiac arrhythmia, unspecified; J43.0 Unilateral pulmonary emphysema [MacLeod's syndrome]; D72.829 Elevated white blood cell count, unspecified; G47.00 Insomnia, unspecified; C34.90 Malignant neoplasm of unspecified part of unspecified bronchus or lung; R94.31 Abnormal electrocardiogram [ECG] [EKG]; Z99.89 Dependence on other enabling machines and devices; Z88.0 Allergy status to penicillin; Z88.2 Allergy status to sulfonamides; Z56.0 Unemployment, unspecified
CPT/HCPCS: 36415; 80053; 81003; 85025; 85027; 86593; 87389; 93005; 93010